=== PATIENT | female | born 1930 | race Caucasian/White ===

== ENCOUNTER 2018-02-02 18:56 | Inpatient (IN) ==
[2018-02-02] MEDS ORDERED: Lidocaine PF 1% Inj 30 ML Vial INFILTRATN ONE (20:51)
--- NOTE | 2018-02-02 20:51 | XR ---
EXAM DATE: 02/02/2018 8:47 PM EST AGE/SEX: 87 years / Female INDICATIONS: Evaluate for free air. Post op lap jimi two days ago, 01/31/18. CLINICAL DATA: This is the patient's initial encounter. Patient reports that signs and symptoms have been present for 1 day and indicates a pain score of 7/10. MEDICAL/SURGICAL HISTORY: None. None. COMPARISON: No prior exams available for comparison. FINDINGS: There is air beneath the right diaphragm as would be expected post recent surgery. Surgical clips are present in the right upper quadrant. Visualized bowel is nondilated. CONCLUSION: Mild pneumoperitoneum Electronically signed by: Vasu Ponce MD Board Certified Radiologist 02/02/2018 8:49 PM EST
[2018-02-02 21:37] LABS: Activated Partial Thrombo Time 46.7 sec (23.4-31.7); INR 2.1 Ratio; Prothrombin Time 20.9 sec (9.8-11.6)
[2018-02-02 21:49] LABS: Baso # (Auto) 0.8 th/mm3 (0.0-0.2); Baso % (Auto) 3.4 % (0.0-2.0); Eos % (Auto) 0.1 % (0.0-4.0); Hematocrit 31.6 % (35.0-46.0); Hemoglobin 10.7 gm/dL (11.6-15.3); Lymph # (Auto) 1.8 th/mm3 (1.0-4.8); Lymph % (Auto) 7.7 % (9.0-44.0); Mean Corpuscular HGB Conc 33.8 % (32.0-36.0); Mean Corpuscular Hemoglobin 32.7 pg (27.0-34.0); Mean Corpuscular Volume 96.7 fL (80.0-100.0); Mean Platelet Volume 10.3 fL (7.0-11.0); Mono # (Auto) 1.9 th/mm3 (0.0-0.9); Mono % (Auto) 8.1 % (0.0-8.0); Neut # (Auto) 19.1 th/mm3 (1.8-7.7); Neut % (Auto) 80.7 % (16.0-70.0); Platelet Count 254 th/mm3 (150-450); Red Blood Count 3.27 mil/mm3 (4.00-5.30); White Blood Count 23.6 th/mm3 (4.0-11.0)
--- NOTE | 2018-02-02 22:51 | XR ---
EXAM DATE: 02/02/2018 10:47 PM EST AGE/SEX: 87 years / Female INDICATIONS: Productive cough and shortness of breath. CLINICAL DATA: This is the patient's initial encounter. Patient reports that signs and symptoms have been present for 1 day and indicates a pain score of 0/10. MEDICAL/SURGICAL HISTORY: None. Cholecystectomy. COMPARISON: No prior exams available for comparison. FINDINGS: Slight diffuse nodular interstitial prominence. Mild focal infiltrate in the right lung base. No evid ence of effusion. Cardiac contours are satisfactory accounting for slight rotation. Sternotomy wires present. CONCLUSION: Mild right base infiltrate Electronically signed by: Vasu Ponce MD Board Certified Radiologist 02/02/2018 10:50 PM EST
[2018-02-02] MEDS ORDERED: Sodium Chlor 0.9% Inj 500 ML IV.SIG SCH (23:00)
[2018-02-02] MEDS ORDERED: Aztreonam Inj 2 GM in Sodium Chloride 0.9% Inj 100 ML IV.SIG ONE (23:06)
[2018-02-02 23:37] LABS: Calcium 8.7 mg/dL (8.5-10.1)
[2018-02-02 23:38] LABS: Carbon Dioxide 26.3 meq/L (21.0-32.0)
[2018-02-02 23:39] LABS: Albumin 2.9 g/dL (3.4-5.0)
[2018-02-02 23:44] LABS: Total Protein 7.2 g/dL (6.4-8.2)
[2018-02-02 23:53] LABS: Potassium 4.3 meq/L (3.5-5.1)
--- NOTE | 2018-02-03 00:04 | ED ---
HPI General Chief complaint: Skin/Abscess/Foreign Body Stated complaint: surgical site discharge Time Seen by Provider: 02/02/18 20:09 Source: patient and family Mode of arrival: ambulatory Limitations: no limitations History of Present Illness HPI narrative: 87-year-old female presents to the emergency department in the care of family for evaluation of bleeding from postsurgical site. Patient underwent elective cholecystectomy by laparoscopic procedure by Dr. Sims her surgeon 01/31/18. Patient had recently been identified to have symptomatic cholelithiasis. 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 Patient is prescribed Coumadin therapy. Patient had Coumadin held 4 days prior to surgery. Patient was placed on Lovenox as she was bridged back to Coumadin therapy. Patient takes Coumadin 5 days a week 4 mg and 2 days a week 2 mg. Patient is under the care of cork insulator helper Dr. Cummings who wanted patient to remain anticoagulated. Patient is also been receiving Lovenox 1 mg/ kg weight-based subcutaneously twice daily. Patient's last dose of Lovenox was this afternoon. Patient was noted this morning by family to have bleeding from incision site right abdominal wall since 4 AM. Patient also has tenderness to right upper quadrant right abdominal wall since 4 AM. Patient receiving Tylenol and Toradol for pain management no narcotic medications administered. Patient's family noted temperature elevation of 100 F but denies fever or chills. Patient has had mild cough and recently completed a course of azithromycin prescribed approximately 2 weeks ago for diagnosis of bronchitis chest x-ray was not done at that time unknown if patient had pneumonia. Patient has not had hemoptysis chest pain or shortness of breath and denies pleuritic pain. Patient has noted pain to the right upper quadrant and right abdomen abdominal wall at site of bleeding from incision site that has caused her to have some discomfort with deep inspiratory effort. Patient had no lower extremity pain or swelling. Patient had bruising to the anterior abdominal wall and noted at incision sites. Patient's had no dysuria frequency or urgency. After azithromycin had bout of diarrhea a C. difficile PCR was negative this is confirmed by family who daughter is a nurse and diarrhea has resolved. Patient did receive vancomycin and Flagyl prior to surgery. Patient was not discharged home on antibiotic. Patient family did contact the surgeon' s office who finally contacted her and encouraged her to come to the emergency room for ongoing bleeding. complaint: Reports lesion Onset (ago): hour(s) Tetanus Immunization: <5 Years Location: Reports abdomen (RUQ abdominal wall) Severity: moderate Severity scale (1-10): 4 Quality: Reports other (bleeding at laproscopic incision sitre RUQ) Pain Consistency: colicky Relieving factors: none (no resolution with direct pressure) Exacerbating factors: palpation (tenderness RUQ; on coumadin and bridging lovenox --last dose today) Context: Reports other (recent cholecystectomy) Associated symptoms: Reports nausea and cough (rare--recetn cousre of antibiotic 3 weeks ago for bronchitis also recent negative c.diff pcr for diarrhea ); Denies fever (max oral temp 100F but receivingf toradol and tylenol for post operative pain management), chills, rigors, itching, vomiting, malaise , arthralgias, myalgias and shortness of breath Treatments prior to arrival: Reports bandages Related Data Home Medications Medication Instructions Recorded Confirmed acetaminophen [Tylenol] 325 mg PO QID PRN 01/31/18 02/02/18 atorvastatin 40 mg PO DAILY 01/31/18 02/02/18 cholecalciferol (vitamin D3) 1 tab PO DAILY 01/31/18 02/02/18 [Vitamin D3] econazole 1 applic TOPICAL DAILY 01/31/18 02/02/18 furosemide 20 mg PO DAILY PRN 01/31/18 02/02/18 furosemide 40 mg PO DAILY 01/31/18 02/02/18 levothyroxine 88 mcg PO DAILY 01/31/18 02/02/18 losartan 50 mg PO DAILY 01/31/18 02/02/18 mecobalamin (vitamin B12) 1 tab PO DAILY 01/31/18 02/02/18 multivitamin [Daily Multi-Vitamin] 1 tab PO QAM 01/31/18 02/02/18 omeprazole 40 mg PO DAILY 01/31/18 02/02/18 potassium chloride 10 meq PO DAILY 01/31/18 02/02/18 warfarin [Coumadin] 2 mg PO DAILY 01/31/18 02/02/18 warfarin [Coumadin] 4 mg PO DAILY 01/31/18 02/02/18 Allergies Allergy/AdvReac Type Severity Reaction Status Date / Time cephalexin Allergy Severe HEACACHE Verified 01/31/18 08:57 DEPLEATS NORMAL TYLER AND POSSIBLE RASH sulfamethoxazole Allergy Severe Rash, Verified 01/31/18 08:57 Generalized trimethoprim Allergy Severe Rash Verified 01/31/18 08:57 Review of Systems ROS: all other systems reviewed are negative [facility] Medical History Medical History Atrial fibrillation (Acute) CHF (congestive heart failure) (Acute) CVA (cerebral vascular accident) (Acute) Dementia (Acute) High cholesterol (Acute) Hypertension (Acute) Hypothyroid (Acute) TIA (transient ischemic attack) (Acute) Surgical History Surgical History S/P CABG x 4 (Acute) Social History Social History Substance History: No History of Abuse Second Hand Smoke Exposure: No Smoking Status: Never smoker How Often Do You Have a Drink Containing Alcohol: Never Recent Travel in [facility] [place] within the Last 8 Weeks: No Recent Out of Country Travel within the Last 8 Weeks: No Immunization History Tetanus Immunization: <5 Years Exam Narrative Exam Narrative: GENERAL: Well-nourished, well-developed patient. SKIN: Focused skin assessment warm/dry. HEAD: Normocephalic. EYES: No scleral icterus. No injection or drainage. NECK: Supple, trachea midline. No JVD or lymphadenopathy. CARDIOVASCULAR: Regular rate and rhythm without murmurs, gallops, or rubs. RESPIRATORY: Breath sounds equal bilaterally. No accessory muscle use. GASTROINTESTINAL: Abdomen soft, non-tender, nondistended. Attention right upper quadrant active oozing from the incision site noted from underneath the wound adhesive Dermabond applied at time of wound closure at time of cholecystectomy mild ecchymosis no induration no redness no fluctuance mild tenderness to direct palpation remainder of abdomen ecchymotic with well- healing postoperative changes at incision sites for laparoscopic cholecystectomy. No guarding no rebound. MUSCULOSKELETAL: No cyanosis, or edema. BACK: Nontender without obvious deformity. No CVA tenderness. Procedures Laceration Laceration 1: Site: other (post op incision site with active bleeding ) Side (If applicable): right Size (cm): 0.25 Description: linear Depth: simple, single layer Anesthetic used: lidocaine 1% Amount (mL): 2 Pre-repair:: wound explored and irrigated extensively Skin layer closed with: ethilon Size (cm): 4-0 Technique:: simple, interrupted (site with re-bleeding additional suture inserted with gelgoam and good hemostasis obtained) Course Initial Documented Vital Signs Temperature 98.4 F 02/02/18 19:03 Pulse Rate 95 H 02/02/18 19:03 Respiratory Rate 18 02/02/18 19:03 Blood Pressure 143/64 H 02/02/18 19:03 Pulse Oximetry 95 02/02/18 19:03 Last Documented Vital Signs Temperature 98.5 F 02/02/18 22:40 Pulse Rate 101 H 02/02/18 22:40 Respiratory Rate 20 02/02/18 22:40 Blood Pressure 145/57 H 02/02/18 22:40 Pulse Oximetry 96 02/02/18 22:40 Medical Decision Making MDM Narrative Medical decision making narrative: Patient placed on monitor IV access obtained INR APTT and CBC ordered Wound site observed and continues to have active oozing therefore discussed case with patient's surgeon Dr. Sims who recommends [id number] suture however wound edges are such that wound adhesive/Dermabond interferes with depth of wound therefore after cleaning the site well with Betadine and sterile prep and drape 1% lidocaine was injected with good local anesthetic accomplished and 4-0 nylon sutures placed with good hemostasis and dressing applied. Review of labs INR is 2.1 APTT prolonged at 47 however hemoglobin is stable at 10.7 but white count is 23,600 with left shift therefore additional labs were ordered chest x-ray along with upright abdomen lactic acid and blood cultures along with urine which was a catheterized specimen Patient's case discussed with patient surgeon Dr. Sims who recommends proceeding with CT abdomen and pelvis although his suspicion is low for surgical related infection. Chest x-ray is remarkable for right basal infiltrate which may reflect previous bronchitis/pneumonia resolving or may be a new finding. Urinalysis shows some white blood cells but no bacteria cultures indicated. Lactic acid not elevated at 0.8. Patient treated with presumptive IV antibiotic Discussed with DR Sims Discussed with Dr Ron Childs; Dr. Childs will admit patient for Dr. Sims with consult to Dr. Sims. Family is aware of plan patient given evening dose of warfarin 2 mg by mouth. Patient will be continued on Azactam and vancomycin. Medical Screen Exam Complete: Yes Emergency Medical Condition: Yes Differential Diagnosis Differential Diagnosis: Coagulopathy, anemia, postoperative wound bleeding, dehiscence, seroma, postoperative abscess, pneumoperitoneum, sepsis, pneumonia, UTI Medical Records Medical records reviewed: Yes I reviewed the patient's medical records. Lab Data Lab results reviewed: Yes I reviewed the patient's lab results. Result diagrams: 02/02/18 21:00 02/02/18 23:10 Lab Results 02/02/18 02/02/18 02/02/18 Range/Units 21:00 21:00 21:00 CBC w Diff Slide review pending WBC 23.6 H (4.0-11.0) th/mm3 RBC 3.27 L (4.00-5.30) mil/mm3 Hgb 10.7 L (11.6-15.3) gm/dL Hct 31.6 L (35.0-46.0) % MCV 96.7 (80.0-100.0) fL MCH 32.7 (27.0-34.0) pg MCHC 33.8 (32.0-36.0) % RDW 13.0 (11.6-17.2) % Plt Count 254 (150-450) th/mm3 MPV 10.3 (7.0-11.0) fL Neut % (Auto) 80.7 H (16.0-70.0) % Lymph % (Auto) 7.7 L (9.0-44.0) % Mitchell % (Auto) 8.1 H (0.0-8.0) % Eos % (Auto) 0.1 (0.0-4.0) % Baso % (Auto) 3.4 H (0.0-2.0) % Neut # (Auto) 19.1 H (1.8-7.7) th/mm3 Lymph # (Auto) 1.8 (1.0-4.8) th/mm3 Mitchell # (Auto) 1.9 H (0.0-0.9) th/mm3 Eos # (Auto) 0.0 (0.0-0.4) th/mm3 Baso # (Auto) 0.8 H (0.0-0.2) th/mm3 WBC Differential . Diff Scan Auto diff confirmed Differential Comment . PT 20.9 H (9.8-11.6) sec INR 2.1 Ratio APTT 46.7 H Cancelled (23.4-31.7) sec Sodium (136-145) meq/L Potassium (3.5-5.1) meq/L Chloride (98-107) meq/L Carbon Dioxide (21.0-32.0) meq/L Anion Gap (5-15) meq/L BUN (7-18) mg/dL Creatinine (0.50-1.00) mg/dL Estimated GFR (>89) mL/min Random Glucose (74-106) mg/dL Lactic Acid (0.4-2.0) mmol/L Calcium (8.5-10.1) mg/dL Total Bilirubin (0.2-1.0) mg/dL Direct Bilirubin (0.0-0.2) mg/dL Indirect Bilirubin (0.0-0.8) mg/dL AST (15-37) U/L ALT (10-53) U/L Alkaline Phosphatase (45-117) U/L Total Protein (6.4-8.2) g/dL Albumin (3.4-5.0) g/dL Urine Color (Yellw/Straw) Urine Clarity (Clear) Urine pH (5.0-8.5) Ur Specific [place] (1.002-1.035) Urine Protein (Neg-Trace) mg/dL Urine Glucose (UA) (Negative) mg/dL Urine Ketones (Negative) mg/dL Urine Occult Blood (Negative) Urine Nitrate (Negative) Urine Bilirubin (Negative) Urine Urobilinogen (Less than 2) mg/dL Ur Leukocyte Esterase (Negative) Urine RBC (0-3) /hpf Urine WBC (0-5) /hpf Urine WBC Clumps (None) Ur Squamous Epith Cells (0-5) /hpf Micro UA Comment Ur Microscopic Review Urine Culture Comments 02/02/18 02/02/18 02/02/18 Range/Units 23:05 23:05 23:10 CBC w Diff WBC (4.0-11.0) th/mm3 RBC (4.00-5.30) mil/mm3 Hgb (11.6-15.3) gm/dL Hct (35.0-46.0) % MCV (80.0-100.0) fL MCH (27.0-34.0) pg MCHC (32.0-36.0) % RDW (11.6-17.2) % Plt Count (150-450) th/mm3 MPV (7.0-11.0) fL Neut % (Auto) (16.0-70.0) % Lymph % (Auto) (9.0-44.0) % Mitchell % (Auto) (0.0-8.0) % Eos % (Auto) (0.0-4.0) % Baso % (Auto) (0.0-2.0) % Neut # (Auto) (1.8-7.7) th/mm3 Lymph # (Auto) (1.0-4.8) th/mm3 Mitchell # (Auto) (0.0-0.9) th/mm3 Eos # (Auto) (0.0-0.4) th/mm3 Baso # (Auto) (0.0-0.2) th/mm3 WBC Differential Diff Scan Differential Comment PT (9.8-11.6) sec INR Ratio APTT (23.4-31.7) sec Sodium 127 L (136-145) meq/L Potassium 4.3 (3.5-5.1) meq/L Chloride 91 L (98-107) meq/L Carbon Dioxide 26.3 (21.0-32.0) meq/L Anion Gap 10 (5-15) meq/L BUN 18 (7-18) mg/dL Creatinine 0.90 (0.50-1.00) mg/dL Estimated GFR 59 L (>89) mL/min Random Glucose 76 (74-106) mg/dL Lactic Acid 0.8 (0.4-2.0) mmol/L Calcium 8.7 (8.5-10.1) mg/dL Total Bilirubin 1.1 H (0.2-1.0) mg/dL Direct Bilirubin 0.2 (0.0-0.2) mg/dL Indirect Bilirubin 0.9 H (0.0-0.8) mg/dL AST 60 H (15-37) U/L ALT 67 H (10-53) U/L Alkaline Phosphatase 70 (45-117) U/L Total Protein 7.2 (6.4-8.2) g/dL Albumin 2.9 L (3.4-5.0) g/dL Urine Color (Yellw/Straw) Urine Clarity (Clear) Urine pH (5.0-8.5) Ur Specific [place] (1.002-1.035) Urine Protein (Neg-Trace) mg/dL Urine Glucose (UA) (Negative) mg/dL Urine Ketones (Negative) mg/dL Urine Occult Blood (Negative) Urine Nitrate (Negative) Urine Bilirubin (Negative) Urine Urobilinogen (Less than 2) mg/dL Ur Leukocyte Esterase (Negative) Urine RBC (0-3) /hpf Urine WBC (0-5) /hpf Urine WBC Clumps (None) Ur Squamous Epith Cells (0-5) /hpf Micro UA Comment Ur Microscopic Review Urine Culture Comments 02/03/18 Range/Units 00:03 CBC w Diff WBC (4.0-11.0) th/mm3 RBC (4.00-5.30) mil/mm3 Hgb (11.6-15.3) gm/dL Hct (35.0-46.0) % MCV (80.0-100.0) fL MCH (27.0-34.0) pg MCHC (32.0-36.0) % RDW (11.6-17.2) % Plt Count (150-450) th/mm3 MPV (7.0-11.0) fL Neut % (Auto) (16.0-70.0) % Lymph % (Auto) (9.0-44.0) % Mitchell % (Auto) (0.0-8.0) % Eos % (Auto) (0.0-4.0) % Baso % (Auto) (0.0-2.0) % Neut # (Auto) (1.8-7.7) th/mm3 Lymph # (Auto) (1.0-4.8) th/mm3 Mitchell # (Auto) (0.0-0.9) th/mm3 Eos # (Auto) (0.0-0.4) th/mm3 Baso # (Auto) (0.0-0.2) th/mm3 WBC Differential Diff Scan Differential Comment PT (9.8-11.6) sec INR Ratio APTT (23.4-31.7) sec Sodium (136-145) meq/L Potassium (3.5-5.1) meq/L Chloride (98-107) meq/L Carbon Dioxide (21.0-32.0) meq/L Anion Gap (5-15) meq/L BUN (7-18) mg/dL Creatinine (0.50-1.00) mg/dL Estimated GFR (>89) mL/min Random Glucose (74-106) mg/dL Lactic Acid (0.4-2.0) mmol/L Calcium (8.5-10.1) mg/dL Total Bilirubin (0.2-1.0) mg/dL Direct Bilirubin (0.0-0.2) mg/dL Indirect Bilirubin (0.0-0.8) mg/dL AST (15-37) U/L ALT (10-53) U/L Alkaline Phosphatase (45-117) U/L Total Protein (6.4-8.2) g/dL Albumin (3.4-5.0) g/dL Urine Color Yellow (Yellw/Straw) Urine Clarity Clear (Clear) Urine pH 5.5 (5.0-8.5) Ur Specific [place] Less/equal 1.005 (1.002-1.035) Urine Protein Negative (Neg-Trace) mg/dL Urine Glucose (UA) Negative (Negative) mg/dL Urine Ketones Negative (Negative) mg/dL Urine Occult Blood Moderate H (Negative) Urine Nitrate Negative (Negative) Urine Bilirubin Negative (Negative) Urine Urobilinogen 0.2 (Less than 2) mg/dL Ur Leukocyte Esterase Trace H (Negative) Urine RBC 0-3 (0-3) /hpf Urine WBC 6-8 H (0-5) /hpf Urine WBC Clumps Few H (None) Ur Squamous Epith Cells 0-5 (0-5) /hpf Micro UA Comment Cath-culture ind Ur Microscopic Review Microscopic reviewed Urine Culture Comments Cath-cult indicated Imaging Data Radiologist's impression: Abdomen X-Ray 02/02/18 20:09 CONCLUSION: Mild pneumoperitoneum Chest X-Ray 02/02/18 22:35 CONCLUSION: Mild right base infiltrate Abdomen/Pelvis CT 02/03/18 00:26 CONCLUSION: 1. Fluid in the gallbladder fossa with tiny locules of air including some areas of inflammation the anterior abdominal wall suggesting recent abdominal surgery suspected cholecystectomy. The anterior abdominal wall show some induration presumably cellulitis without evidence of drainable fluid collection or abscess. There are other small areas of increased density of the abdominal wall likely related to recent injections. Discharge Plan Discharge Disposition Patient Disposition: ED Admit(ED Internal Use Only) Discharge Condition Condition: Stable Discharge Order Discharge Orders: ED Use Only Admit Order (Routine); Ordered 02/03/18 Ordered By: Carol Samuels Discharge Details Diagnosis: Cellulitis of right abdominal wall, Hx laparoscopic cholecystectomy, Coagulopathy, Leukocytosis, SIRS (systemic inflammatory response syndrome) Physicians Team ED Provider: Carol Samuels Primary Care Provider: Sina Noguera Attending Provider: Miguelangel Childs Status ED Status: Admitted Observation Patient
[2018-02-03] MEDS ORDERED: Gelatin 12 MM/7 MM Topical Foam TOPICAL ONE (00:33)
[2018-02-03 00:35] LABS: Bilirubin,Urine Negative (Negative); Clarity,Urine Clear (Clear); Color,Urine Yellow (Yellw/Straw); Glucose,Urine (UA) Negative (Negative); Leukocyte Esterase,Urine Trace (Negative); Nitrite,Urine Negative (Negative); PH,Urine 5.5 (5.0-8.5); Specific Gravity,Urine Less/Equal 1.005 (1.002-1.035); Urobilinogen,Urine 0.2 mg/dL (Less than 2)
--- NOTE | 2018-02-03 00:39 | CT ---
EXAM DATE: 02/03/2018 12:28 AM EST AGE/SEX: 87 years / Female INDICATIONS: Abscess at surgical site. CLINICAL DATA: This is the patient's initial encounter. Patient reports that signs and symptoms have been present for 1 day and indicates a pain score of 3/10. MEDICAL/SURGICAL HISTORY: . Atrial fibrillation. Congestive heart failure. Cerebral vascular ac cident. Dementia. High cholesterol. Hypertension. Hypothyroid. Transient ischemic attack. . CABG fou r times. ORAL CONTRAST: No oral contrast ingested. RADIATION DOSE: 11.28 CTDI (mGy) COMPARISON: No prior exams available for comparison. TECHNIQUE: Multiple contiguous axial images were obtained through the abdomen and pelvis following b olus infusion of 84 ml Omnipaque 350 (iohexol) nonionic water-soluble contrast as a single exam dos e. No oral contrast ingested. Using automated exposure control and adjustment of the mA and/or kV ac cording to patient size, radiation dose was kept as low as reasonably achievable to obtain optimal di agnostic quality images. DICOM format image data is available electronically for review and comparis on. FINDINGS: Lower Lungs: The visualized lower lungs are clear. Liver: The liver has a homogeneous density without space-occupying lesion. There is no dilation of th e biliary tree. There is some fluid in the gallbladder fossa with 2 surgical clips with a few tiny lo cules of air, I suspect the patient has had a recent cholecystectomy. Spleen: Homogeneous density without enlargement. Pancreas: Unremarkable without mass or calcification. Kidneys: Normal in size and shape. No evidence of mass or hydronephrosis. Adrenal Glands: Unremarkable. Aorta: Marked atherosclerotic disease. The aorta and proximal iliac vessels are grossly unremarkable without aneurysmal dilation. Bowel/Mesentery: The bowel loops are grossly unremarkable. The cecum and sigmoid colon have a normal configuration. Abdominal Wall: Superiorly in the midline there is a 5.5 cm area of indurated fat with skin thickeni ng presumably cellulitis. There are a few small locules of air within the presumed cellulitis without drainable fluid collection. Tiny locules of air extending down the anterior abdominal wall along the superficial rectus muscles likely related to recent surgery. Retroperitoneum: No evidence of adenopathy in the retrocrural, para-aortic, or deep pelvic regions. Bladder: Contours are smooth. Reproductive Organs: No abnormal masses or calcifications seen. Inguinal: The inguinal region is unremarkable without evidence of adenopathy. Bony Structures: Unremarkable. CONCLUSION: 1. Fluid in the gallbladder fossa with tiny locules of air including some areas of inflammation the anterior abdominal wall suggesting recent abdominal surgery suspected cholecystectomy. The anterior a bdominal wall show some induration presumably cellulitis without evidence of drainable fluid collecti on or abscess. There are other small areas of increased density of the abdominal wall likely related to recent injections. Electronically signed by: Craig Roque MD Board Certified Radiologist 02/03/2018 12:37 AM EST
[2018-02-03 00:48] LABS: RBC,Urine 0-3 /hpf (0-3); Squamous Epithelial Cell,Urine 0-5 /hpf (0-5)
[2018-02-03] MEDS ORDERED: Vancomycin Inj 1,000 MG in Sodium Chlor 0.9% Inj 250 ML IV.SIG ONE (00:51)
[2018-02-03] MEDS ORDERED: Ketorolac Inj 30 MG/ML (IVP) Vial IV.PUSH ONE (02:44)
[2018-02-03] MEDS ORDERED: Acetaminophen 325 MG Tablet PO ONE (02:47)
[2018-02-03] MEDS: Sod Chloride 0.9% Inj 1,000 ML IV.CONT SCH ×2 (03:54→17:00)
[2018-02-03] MEDS ORDERED: Vancomycin Consult Pharmacy OTHER PRN (06:08)
[2018-02-03] MEDS ORDERED: ACETAMINOPHEN 325 MG PO PRN (06:42)
[2018-02-03] MEDS ORDERED: ACETAMINOPHEN 650 MG PO PRN (06:46)
--- NOTE | 2018-02-03 07:32 | P.HP ---
History of Present Illness Service: [facility] hospitalist service Primary Care Physician: Sina Noguera MD History of Present Illness: HPI: 87-year-old white female who had a laparoscopic cholecystectomy on 01-31-18 who came to the emergency room on the evening of 02-02-18 because of persistent oozing of blood from 1 of the incision sites of her surgery. It has been oozing blood for about 24 hours and they were unable to stop the bleeding. She was on Lovenox as bridge therapy for warfarin because she has atrial fibrillation. Her warfarin was reinstituted the evening of her surgery and she had an INR done on 02-02-18 that was just slightly above 2.0 and her Lovenox was stopped. In the ER the physician had to apparently place a few sutures in the site where the incision was draining and apply some pressure to eventually get the bleeding to stop. She was mildly tender in the right upper abdomen. Blood work that was done in the ED showed an elevated white blood cell count of 23,000 and a sodium level of 127. An initial chest x-ray showed questionable infiltrate in right lung base. A CT scan of the abdomen however showed no infiltrate in the lower lung but did show induration in the right upper abdomen suggestive of possible cellulitis but no abscess was seen. She reportedly did have a low-grade fever yesterday morning. She did have one episode of vomiting on Tuesday evening (02-01-18). She denies any dysuria, frequency of urination or hematuria. She has no diarrhea. She was treated for a bronchial type infection on 01-20-[address] Noguera (PCP) and given a Z-Edwardo at that time and her cough resolved to her surgery. This morning after she woke she did cough to clear her throat and there was some slight blood tinged white mucus. A chest x-ray was not done earlier in the month when she was put on the Z-edwardo. Dr. Samuels (ER physician) talked with the patient's surgeon (Dr. Sims) last night in the emergency room and he recommended admitting the patient to the medical service and he would see her in consultation. She was given vancomycin and Azactam in the ED last evening. She denies any chest pain or wheezing. Medical history: Chronic atrial fibrillation Hypertension Hyperlipidemia Hypothyroidism Gastroesophageal reflux disease Mild to moderate aortic valve stenosis on prior 2D echo on 12-08-17. Her EF was 55%. Atherosclerosis of the aorta/tortuous aorta Osteopenia Stage II CKD History of prior CVA and TIA CHF Coronary artery disease with prior four-vessel coronary artery bypass graft. She had a myocardial perfusion scan on 12-07-17 showed mild inferolateral pattern without significant ischemia and an EF of 60%. No colon disease No liver disease No diabetes mellitus No cancer History of herpes zoster Surgical history: Tonsillectomy Bilateral cataract extraction and lens implant Bilateral upper lid surgery for ptosis Four-vessel coronary artery bypass Laparoscopic cholecystectomy on 01-31-18 Allergies: Cephalexin Bactrim (sulfa drugs) Medications: Warfarin 4 mg 1 tablet daily except half a tablet on Tuesday and Tuesday Omeprazole 20 mg tablet 2 tablets daily Losartan 50 mg 1 daily Atorvastatin 40 mg daily Furosemide 40 mg daily and an additional 20 mg as needed Potassium chloride 10 mEq 1 daily Vitamin D 3 2000 units daily Multivitamin 1 daily Vitamin B12 thousand micrograms daily Family history: Mother at 95 Father at 46 of heart disease Son has had coronary artery disease and coronary artery bypass Social history: She only smoked a pack a day for 10 years many years ago. She denies alcohol use. She is and lives independently alone. 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 - Diagnosis (1) Cellulitis of right abdominal wall (2) Leukocytosis (3) SIRS (systemic inflammatory response syndrome) (4) Hyponatremia (5) Hypertension (6) Hyperlipidemia (7) Coronary artery disease (8) Chronic atrial fibrillation (9) CHF (congestive heart failure) (10) S/P CABG x 4 (11) Osteopenia (12) GERD (gastroesophageal reflux disease) (13) Aortic valve stenosis (14) Atherosclerosis of aorta (15) Hemoptysis (16) Hx laparoscopic cholecystectomy Review of Systems Review of systems: General: No chills or sweats. Low grade temperature yesterday. HEENT: No sore throat, runny nose, earache. Cardiovascular: No chest pain, heart palpitations, shortness of breath, orthopnea. Pulmonary: No shortness of breath, no pleuritic chest pain Gastrointestinal: No heartburn, indigestion, diarrhea, constipation, melena, rectal bleeding. She has mild pain in the right upper abdomen post-op. She had one episode of vomiting over 24 hours ago. : No dysuria, hematuria, urgency, frequency. She gets occasional leakage of her urine.. Musculoskeletal: Negative Psychiatry: No significant anxiety or depression Extremities: No edema Dermatology: No rash or itching Neuro: No headache, confusion, motor weakness, numbness or tingling PMFSH - History History Provided By: Patient, Family Member - Medical History Medical History: Medical History (Last Reviewed 02/03/18 @ 00:02 by Carol Samuels MD) Atrial fibrillation CHF (congestive heart failure) CVA (cerebral vascular accident) Dementia High cholesterol Hypertension Hypothyroid TIA (transient ischemic attack) - Surgical History Surgical History: Surgical History (Last Updated 02/03/18 @ 07:22 by Miguelangel Childs MD) History of laparoscopic cholecystectomy History of ptosis repair Hx of tonsillectomy Status post cataract extraction of both eyes with insertion of intraocular lens S/P CABG x 4 - Tobacco History Second Hand Smoke Exposure: No Smoking Status: Never smoker - Alcohol History How Often Do You Have a Drink Containing Alcohol: Never - Substance Use History Substance History: No History of Abuse - Travel History Recent Travel in the [place] Within the Last 8 Weeks: No Recent Travel Out of the Country Within the Last 8 Weeks: No - Immunization History Tetanus Immunization: <5 Years Medications and Allergies Active Medications: Active Medications Atorvastatin Calcium (Lipitor) 40 mg PO DAILY [facility] Econazole Nitrate (Spectazole 1% Cream) 1 applicatio TOPICAL DAILY [facility] Aztreonam 1,000 mg/ Sodium (Chloride) 100 mls @ 200 mls/hr IV.SIG Q8H [facility] Last Infusion: 02/03/18 03:55 Dose: Infused Sodium Chloride (Ns Inj) 1,000 mls @ 75 mls/hr IV.CONT .[id number] [facility] Last Admin: 02/03/18 03:54 Dose: 75 mls/hr Aztreonam 2 gm/ Sodium (Chloride) 100 mls @ 200 mls/hr IV.SIG Q8H [facility] Vancomycin HCl 750 mg/ Sodium (Chloride) 257.5 mls @ 250 mls/hr IV.SIG Q24H [facility] Losartan Potassium (Cozaar) 50 mg PO DAILY [facility] Miscellaneous Information ([facility] Ordered Lab Info) 0 each OTHER ONCE@ [id number] [facility] Stop: 02/06/18 04:45 Non-Formulary Medication (Cholecalciferol (Vitamin D3) [Vitamin D3]) 1 tab PO DAILY [facility] Non-Formulary Medication (Levothyroxine [Levothyroxine]) 88 mcg PO DAILY [facility] Non-Formulary Medication (Mecobalamin (Vitamin B12) [Mecobalamin (Vitamin B12)] ) 1 tab PO DAILY [facility] Non-Formulary Medication (Multivitamin [Daily Multi-Vitamin]) 1 tab PO QAM [facility] Non-Formulary Medication (Acetaminophen [Tylenol]) 650 mg PO QID PRN PRN Reason: Pain Pharmacy Profile Note (Vancomycin Consult Pharmacy) 1 each OTHER UNSCH PRN PRN Reason: Pharmacy to dose Allergies Allergy/AdvReac Type Severity Reaction Status Date / Time cephalexin Allergy Severe HEACACHE Verified 01/31/18 08:57 DEPLEATS NORMAL TYLER AND POSSIBLE RASH sulfamethoxazole Allergy Severe Rash, Verified 01/31/18 08:57 Generalized trimethoprim Allergy Severe Rash Verified 01/31/18 08:57 Home Medications Medication Instructions Recorded Confirmed Type acetaminophen [Tylenol] 325 mg PO QID PRN 01/31/18 02/02/18 History atorvastatin 40 mg PO DAILY 01/31/18 02/02/18 History cholecalciferol (vitamin D3) 1 tab PO DAILY 01/31/18 02/02/18 History [Vitamin D3] econazole 1 applic TOPICAL DAILY 01/31/18 02/02/18 History furosemide 20 mg PO DAILY PRN 01/31/18 02/02/18 History furosemide 40 mg PO DAILY 01/31/18 02/02/18 History levothyroxine 88 mcg PO DAILY 01/31/18 02/02/18 History losartan 50 mg PO DAILY 01/31/18 02/02/18 History mecobalamin (vitamin B12) 1 tab PO DAILY 01/31/18 02/02/18 History multivitamin [Daily Multi-Vitamin] 1 tab PO QAM 01/31/18 02/02/18 History omeprazole 40 mg PO DAILY 01/31/18 02/02/18 History potassium chloride 10 meq PO DAILY 01/31/18 02/02/18 History warfarin [Coumadin] 2 mg PO DAILY 01/31/18 02/02/18 History warfarin [Coumadin] 4 mg PO DAILY 01/31/18 02/02/18 History Exam Vital signs: Vital Signs 02/02/18 19:03 02/02/18 22:40 02/03/18 04:00 Temperature 98.4 F 98.5 F 97.4 F L Pulse Rate 95 H 101 H 104 H Respiratory Rate 18 20 20 Blood Pressure 143/64 H 145/57 H 191/77 H Pulse Oximetry 95 96 93 L Intake & Output 02/02/18 02/02/18 02/03/18 06:59 18:59 06:59 Intake Total 950 / 950 Balance 950 / 950 Weight 67.1 kg Intake: IV 950 / 950 Azactam Inj 1,000 MG In NS Inj 100 / 100 100 ML @ 200 mls/hr IV.SIG Q8H [facility] Rx#:[id number] Azactam Inj 2 GM In NS Inj 100 100 / 100 ML @ 200 mls/hr IV.SIG ONCE ONE Rx#:[id number] NS Inj 500 ML @ 1000 mls/hr IV. 500 / 500 SIG BOLUS [facility] Rx#:[id number] Vancomycin Inj 1,000 MG In NS 250 / 250 Inj 250 ML @ 250 mls/hr IV.SIG ONCE ONE Rx#:[id number] Other: Date of Last Bowel Movement 01/29/18 Weight On Admission 67.1 kg Narrative: PE: This is a pleasant white female in no distress. HEENT: Pupils equal, EOMs intact, sclera nonicteric, mouth without lesions, TMs intact, nose without lesions Neck: No JVD, neck is supple, no carotid bruit Heart: Irregular rate and rhythm without murmurs or gallops Lungs: Clear to auscultation Abdomen: She has mild to moderate tenderness of the mid and right upper abdomen with slight rebound tenderness, no masses, no organomegaly. Small surgical sites from recent lap cholecystomy with no current oozing of blood Extremities: No edema, pulses palpated, no calf tenderness Skin: Without lesions or rash Neuro: Alert, oriented, normal motor exam, sensation intact, cranial nerves intact Results - Labs CBC & Chem 7: 02/02/18 21:00 02/02/18 23:10 Labs: Laboratory Results - last 24 hr 02/02/18 02/02/18 02/02/18 21:00 21:00 21:00 CBC w Diff Slide review pending WBC 23.6 H RBC 3.27 L Hgb 10.7 L Hct 31.6 L MCV 96.7 MCH 32.7 MCHC 33.8 RDW 13.0 Plt Count 254 MPV 10.3 Neut % (Auto) 80.7 H Lymph % (Auto) 7.7 L [place] % (Auto) 8.1 H Eos % (Auto) 0.1 Baso % (Auto) 3.4 H Neut # (Auto) 19.1 H Lymph # (Auto) 1.8 [place] # (Auto) 1.9 H Eos # (Auto) 0.0 Baso # (Auto) 0.8 H WBC Differential . Diff Scan Auto diff confirmed Differential Comment . PT 20.9 H INR 2.1 APTT 46.7 H Cancelled Sodium Potassium Chloride Carbon Dioxide Anion Gap BUN Creatinine Estimated GFR Random Glucose Lactic Acid Calcium Total Bilirubin Direct Bilirubin Indirect Bilirubin AST ALT Alkaline Phosphatase Total Protein Albumin Urine Color Urine Clarity Urine pH Ur Specific [place] Urine Protein Urine Glucose (UA) Urine Ketones Urine Occult Blood Urine Nitrate Urine Bilirubin Urine Urobilinogen Ur Leukocyte Esterase Urine RBC Urine WBC Urine WBC Clumps Ur Squamous Epith Cells Micro UA Comment Ur Microscopic Review Urine Culture Comments 02/02/18 02/02/18 02/02/18 23:05 23:05 23:10 CBC w Diff WBC RBC Hgb Hct MCV MCH MCHC RDW Plt Count MPV Neut % (Auto) Lymph % (Auto) [place] % (Auto) Eos % (Auto) Baso % (Auto) Neut # (Auto) Lymph # (Auto) [place] # (Auto) Eos # (Auto) Baso # (Auto) WBC Differential Diff Scan Differential Comment PT INR APTT Sodium 127 L Potassium 4.3 Chloride 91 L Carbon Dioxide 26.3 Anion Gap 10 BUN 18 Creatinine 0.90 Estimated GFR 59 L Random Glucose 76 Lactic Acid 0.8 Calcium 8.7 Total Bilirubin 1.1 H Direct Bilirubin 0.2 Indirect Bilirubin 0.9 H AST 60 H ALT 67 H Alkaline Phosphatase 70 Total Protein 7.2 Albumin 2.9 L Urine Color Urine Clarity Urine pH Ur Specific [place] Urine Protein Urine Glucose (UA) Urine Ketones Urine Occult Blood Urine Nitrate Urine Bilirubin Urine Urobilinogen Ur Leukocyte Esterase Urine RBC Urine WBC Urine WBC Clumps Ur Squamous Epith Cells Micro UA Comment Ur Microscopic Review Urine Culture Comments 02/03/18 00:03 CBC w Diff WBC RBC Hgb Hct MCV MCH MCHC RDW Plt Count MPV Neut % (Auto) Lymph % (Auto) [place] % (Auto) Eos % (Auto) Baso % (Auto) Neut # (Auto) Lymph # (Auto) [place] # (Auto) Eos # (Auto) Baso # (Auto) WBC Differential Diff Scan Differential Comment PT INR APTT Sodium Potassium Chloride Carbon Dioxide Anion Gap BUN Creatinine Estimated GFR Random Glucose Lactic Acid Calcium Total Bilirubin Direct Bilirubin Indirect Bilirubin AST ALT Alkaline Phosphatase Total Protein Albumin Urine Color Yellow Urine Clarity Clear Urine pH 5.5 Ur Specific [place] Less/equal 1.005 Urine Protein Negative Urine Glucose (UA) Negative Urine Ketones Negative Urine Occult Blood Moderate H Urine Nitrate Negative Urine Bilirubin Negative Urine Urobilinogen 0.2 Ur Leukocyte Esterase Trace H Urine RBC 0-3 Urine WBC 6-8 H Urine WBC Clumps Few H Ur Squamous Epith Cells 0-5 Micro UA Comment Cath-culture ind Ur Microscopic Review Microscopic reviewed Urine Culture Comments Cath-cult indicated - Imaging Impressions Abdomen X-Ray 02/02/18 20:09 CONCLUSION: Mild pneumoperitoneum Chest X-Ray 02/02/18 22:35 CONCLUSION: Mild right base infiltrate Abdomen/Pelvis CT 02/03/18 00:26 CONCLUSION: 1. Fluid in the gallbladder fossa with tiny locules of air including some areas of inflammation the anterior abdominal wall suggesting recent abdominal surgery suspected cholecystectomy. The anterior abdominal wall show some induration presumably cellulitis without evidence of drainable fluid collection or abscess. There are other small areas of increased density of the abdominal wall likely related to recent injections. Caprini VTE Risk Assessment Caprini VTE Risk Assessment: Moderate/High Risk (score >= 2) Caprini Risk Assessment Model: Point Value = 1 Point Value = 2 Point Value = 3 Point Value = 5 Age 41-60 Minor surgery BMI > 25 kg/m2 Swollen legs Varicose veins or History of unexplained or recurrent spontaneous Oral contraceptives or hormone replacement Sepsis (< 1 month) Serious lung disease, including pneumonia (< 1 month) Abnormal pulmonary function Acute myocardial infarction Congestive heart failure (< 1 month) History of inflammatory bowel disease Medical patient at bed rest Age 61-74 Arthroscopic surgery Major open surgery (> 45 min) Laparoscopic surgery (> 45 min) Malignancy Confined to bed (> 72 hours) Immobilizing plaster cast Central venous access Age >= 75 History of VTE Family history of VTE Factor V Leiden Prothrombin [id number] Lupus anticoagulant Anticardiolipin antibodies Elevated serum homocysteine Heparin-induced thrombocytopenia Other congenital or acquired thrombophilia Stroke (< 1 month) Elective arthroplasty Hip, pelvis, or leg fracture Acute spinal cord injury (< 1 month) Prophylaxis Regimen: Total Risk Factor Score Risk Level Prophylaxis Regimen 0-1 Low Early ambulation 2 Moderate Order ONE of the following: *Sequential Compression Device (SCD) *Heparin 5000 units SQ BID 3-4 Higher Order ONE of the following medications: *Heparin 5000 units SQ TID *Enoxaparin/Lovenox 40 mg SQ daily (WT < 150 kg, CrCl > 30 mL/min) *Enoxaparin/Lovenox 30 mg SQ daily (WT < 150 kg, CrCl > 10-29 mL/min) *Enoxaparin/Lovenox 30 mg SQ BID (WT < 150 kg, CrCl > 30 mL/min) AND/OR *Sequential Compression Device (SCD) 5 or more Highest Order ONE of the following medications: *Heparin 5000 units SQ TID (Preferred with Epidurals) *Enoxaparin/Lovenox 40 mg SQ daily (WT < 150 kg, CrCl > 30 mL/min) *Enoxaparin/Lovenox 30 mg SQ daily (WT < 150 kg, CrCl > 10-29 mL/min) *Enoxaparin/Lovenox 30 mg SQ BID (WT < 150 kg, CrCl > 30 mL/min) AND *Sequential Compression Device (SCD) Patient is on Warfarin. Assessment and Plan - Assessment (1) Cellulitis of right abdominal wall Code(s): L03.311 - Cellulitis of abdominal wall Status: Acute (2) Leukocytosis Code(s): D72.829 - Elevated white blood cell count, unspecified Status: Acute (3) SIRS (systemic inflammatory response syndrome) Code(s): R65.10 - Systemic inflammatory response syndrome (SIRS) of non- infectious origin without acute organ dysfunction Status: Acute (4) Hyponatremia Code(s): E87.1 - Hypo-osmolality and hyponatremia Status: Chronic (5) Hypertension Code(s): I10 - Essential (primary) hypertension Status: Chronic (6) Hyperlipidemia Code(s): E78.5 - Hyperlipidemia, unspecified Status: Chronic (7) Coronary artery disease Code(s): I25.10 - Atherosclerotic heart disease of [place] coronary artery without angina pectoris Status: Chronic (8) Chronic atrial fibrillation Code(s): I48.2 - Chronic atrial fibrillation Status: Chronic (9) CHF (congestive heart failure) Code(s): I50.9 - Heart failure, unspecified Status: Chronic (10) S/P CABG x 4 Code(s): Z95.1 - Presence of aortocoronary bypass graft Status: Chronic (11) Osteopenia Code(s): M85.80 - Other specified disorders of bone density and structure, unspecified site Status: Chronic (12) GERD (gastroesophageal reflux disease) Code(s): K21.9 - Gastro-esophageal reflux disease without esophagitis Status: Chronic (13) Aortic valve stenosis Code(s): I35.0 - Nonrheumatic aortic (valve) stenosis Status: Chronic (14) Atherosclerosis of aorta Code(s): I70.0 - Atherosclerosis of aorta Status: Acute (15) Hemoptysis Code(s): R04.2 - Hemoptysis Status: Acute (16) Hx laparoscopic cholecystectomy Code(s): Z90.49 - Acquired absence of other specified parts of digestive tract Status: Acute - Plan Plan: Patient is admitted and begun on IV vancomycin and Azactam. She will be given some IV normal saline hyponatremia. I held her Lasix for now since that was probably contributing to her hyponatremia She will be continued on warfarin for her atrial fibrillation. Her surgeon is been consulted to further evaluate her as well. She will be maintained on her regular medication other than her furosemide for now. I will recheck her CBC and CMP this morning as well as an INR. I will put her on a full liquid diet. Code Status: Full code
[2018-02-03] MEDS: Levothyroxine 88 MCG Tablet PO SCH (07:33)
[2018-02-03] MEDS: Aztreonam Inj 2 GM in Sodium Chloride 0.9% Inj 100 ML IV.SIG SCH ×2 (08:35→16:59)
[2018-02-03 08:48] LABS: Baso # (Auto) 0.1 th/mm3 (0.0-0.2); Baso % (Auto) 0.3 % (0.0-2.0); Eos # (Auto) 0.1 th/mm3 (0.0-0.4); Eos % (Auto) 0.3 % (0.0-4.0); Hemoglobin 10.3 gm/dL (11.6-15.3); Lymph % (Auto) 4.7 % (9.0-44.0); Mean Corpuscular HGB Conc 33.1 % (32.0-36.0); Mean Corpuscular Hemoglobin 31.8 pg (27.0-34.0); Mean Corpuscular Volume 96.2 fL (80.0-100.0); Mean Platelet Volume 10.3 fL (7.0-11.0); Mono # (Auto) 1.2 th/mm3 (0.0-0.9); Mono % (Auto) 5.6 % (0.0-8.0); Neut # (Auto) 19.7 th/mm3 (1.8-7.7); Neut % (Auto) 89.1 % (16.0-70.0); Platelet Count 233 th/mm3 (150-450); Red Blood Count 3.22 mil/mm3 (4.00-5.30); Red Cell Distribution Width 13.2 % (11.6-17.2); White Blood Count 22.1 th/mm3 (4.0-11.0)
[2018-02-03 08:51] LABS: Chloride 95 meq/L (98-107); Potassium 3.9 meq/L (3.5-5.1); Sodium 130 meq/L (136-145)
[2018-02-03 08:53] LABS: INR 1.7 Ratio; Prothrombin Time 17.4 sec (9.8-11.6)
[2018-02-03 08:54] LABS: Albumin 2.5 g/dL (3.4-5.0); Anion Gap 8 meq/L (5-15); Blood Urea Nitrogen 14 mg/dL (7-18); Carbon Dioxide 27.1 meq/L (21.0-32.0); Glucose,Random 102 mg/dL (74-106)
[2018-02-03 08:57] LABS: Alanine Aminotransferase 49 U/L (10-53); Aspartate Aminotransferase 28 U/L (15-37); Glomerular Filtration Rate 80 mL/min (>89)
[2018-02-03 08:59] LABS: Total Protein 6.5 g/dL (6.4-8.2)
[2018-02-03 09:00] LABS: Alkaline Phosphatase 66 U/L (45-117)
[2018-02-03] MEDS ORDERED: MECOBALAMIN PO SCH ×2 (09:00)
[2018-02-03] MEDS ORDERED: ECONAZOLE 1% TOPICAL SCH ×2 (09:00)
[2018-02-03] MEDS: Acetaminophen 325 MG Tablet PO PRN ×2 (09:14→17:05)
[2018-02-03] MEDS: metroNIDAZOLE 500 MG Tablet PO SCH ×2 (11:32→22:01)
--- NOTE | 2018-02-03 13:31 | P.CONGS ---
[facility] Gen Surgery Consult Note Consult date: 02/03/18 Narrative: Mrs. White is an 87 yo F who underwent uncomplicated laparoscopic cholecystectomy on Tuesday this week. Yesterday she developed bleeding from the right lateral port site which was unable to be stopped by direct pressure. Therefore, she presented to [facility] ED where hemostasis was achieved by suture ligation. She was bridged with lovenox during periop period due to h/o multiple CVA and atrial fibrillation. During routine evaluation in ED she was noted to have WBC of 23,000. She c/o mild-moderate abdominal pain. She was tested for c dif last week due to diarrhea which was negative. Previously to that she was given z addis for bronchitis. CT a/p was performed which basically showed post op changes. Review of Systems All other systems reviewed negative except as stated in [facility] - History History Provided By: Patient, Family Member - Medical History Medical History: Medical History (Last Reviewed 02/03/18 @ 00:02 by Carol Samuels MD) Atrial fibrillation CHF (congestive heart failure) CVA (cerebral vascular accident) Dementia High cholesterol Hypertension Hypothyroid TIA (transient ischemic attack) - Surgical History Surgical History: Surgical History (Last Updated 02/03/18 @ 07:22 by Miguelangel Childs MD) History of laparoscopic cholecystectomy History of ptosis repair Hx of tonsillectomy Status post cataract extraction of both eyes with insertion of intraocular lens S/P CABG x 4 - Tobacco History Second Hand Smoke Exposure: No Smoking Status: Never smoker - Alcohol History How Often Do You Have a Drink Containing Alcohol: Never - Substance Use History Substance History: No History of Abuse - Travel History Recent Travel in the [place] Within the Last 8 Weeks: No Recent Travel Out of the Country Within the Last 8 Weeks: No - Immunization History Tetanus Immunization: <5 Years Medications and Allergies Active Medications: Active Medications Acetaminophen (Tylenol) 650 mg PO QID PRN PRN Reason: PAIN SCALE 1-10 Last Admin: 02/03/18 09:14 Dose: 650 mg Atorvastatin Calcium (Lipitor) 40 mg PO DAILY [facility] Last Admin: 02/03/18 08:36 Dose: 40 mg Cyanocobalamin (Vitamin B12) 1,000 mcg PO DAILY [facility] Last Admin: 02/03/18 08:37 Dose: 1,000 mcg Sodium Chloride (Ns Inj) 1,000 mls @ 75 mls/hr IV.CONT .[id number] [facility] Last Admin: 02/03/18 03:54 Dose: 75 mls/hr Aztreonam 2 gm/ Sodium (Chloride) 100 mls @ 200 mls/hr IV.SIG Q8H [facility] Last Infusion: 02/03/18 09:11 Dose: Infused Vancomycin HCl 750 mg/ Sodium (Chloride) 257.5 mls @ 250 mls/hr IV.SIG Q24H [facility] Levothyroxine Sodium (Synthroid) 88 mcg PO DAILY@0600 [facility] Last Admin: 02/03/18 07:33 Dose: 88 mcg Losartan Potassium (Cozaar) 50 mg PO DAILY [facility] Last Admin: 02/03/18 08:36 Dose: 50 mg Metronidazole (Flagyl) 500 mg PO Q8H [facility] Last Admin: 02/03/18 11:32 Dose: 500 mg Miscellaneous Information ([facility] Ordered Lab Info) 0 each OTHER ONCE@ 0345 [facility] Stop: 02/06/18 04:45 Multivitamins (Theragran) 1 tab PO DAILY [facility] Last Admin: 02/03/18 08:36 Dose: 1 tab Patient Own Med- Econazole 1% Cream (Spectazole 1% Cream ) 0 each TOPICAL DAILY [facility] Pharmacy Profile Note (Vancomycin Consult Pharmacy) 1 each OTHER UNSCH PRN PRN Reason: Pharmacy to dose Vitamin D (Vitamin D3) 2,000 unit PO DAILY [facility] Last Admin: 02/03/18 08:36 Dose: 2,000 unit Warfarin Sodium (Coumadin) 4 mg PO DAILY@1600 [facility] Allergies Allergy/AdvReac Type Severity Reaction Status Date / Time cephalexin Allergy Severe HEACACHE Verified 01/31/18 08:57 DEPLEATS NORMAL TYLER AND POSSIBLE RASH sulfamethoxazole Allergy Severe Rash, Verified 01/31/18 08:57 Generalized trimethoprim Allergy Severe Rash Verified 01/31/18 08:57 Home Medications Medication Instructions Recorded Confirmed Type acetaminophen [Tylenol] 325 mg PO QID PRN 01/31/18 02/02/18 History atorvastatin 40 mg PO DAILY 01/31/18 02/02/18 History cholecalciferol (vitamin D3) 1 tab PO DAILY 01/31/18 02/02/18 History [Vitamin D3] econazole 1 applic TOPICAL DAILY 01/31/18 02/02/18 History furosemide 20 mg PO DAILY PRN 01/31/18 02/02/18 History furosemide 40 mg PO DAILY 01/31/18 02/02/18 History levothyroxine 88 mcg PO DAILY 01/31/18 02/02/18 History losartan 50 mg PO DAILY 01/31/18 02/02/18 History mecobalamin (vitamin B12) 1 tab PO DAILY 01/31/18 02/02/18 History multivitamin [Daily Multi-Vitamin] 1 tab PO QAM 01/31/18 02/02/18 History omeprazole 40 mg PO DAILY 01/31/18 02/02/18 History potassium chloride 10 meq PO DAILY 01/31/18 02/02/18 History warfarin [Coumadin] 2 mg PO DAILY 01/31/18 02/02/18 History warfarin [Coumadin] 4 mg PO DAILY 01/31/18 02/02/18 History Exam Vital signs: Vital Signs 02/02/18 19:03 02/02/18 22:40 02/03/18 03:45 Temperature 98.4 F 98.5 F 97.4 F L Pulse Rate 95 H 101 H 104 H Respiratory Rate 18 20 20 Blood Pressure 143/64 H 145/57 H 191/77 H Pulse Oximetry 95 96 93 L 02/03/18 04:00 02/03/18 05:00 02/03/18 08:00 Temperature 97.4 F L 96.9 F L Pulse Rate 104 H 106 H Respiratory Rate 20 16 Blood Pressure 191/77 H 135/63 161/83 H Pulse Oximetry 93 L 96 02/03/18 12:00 Temperature 97.2 F L Pulse Rate 100 H Respiratory Rate 16 Blood Pressure 140/67 Pulse Oximetry 95 Intake & Output 02/02/18 02/03/18 02/03/18 18:59 06:59 18:59 Intake Total 950 / 950 100 / 100 Output Total 400 / 400 Balance 550 / 550 100 / 100 Weight 66.4 kg Intake: IV 950 / 950 100 / 100 Azactam Inj 1,000 MG In NS Inj 100 / 100 100 ML @ 200 mls/hr IV.SIG Q8H [facility] Rx#:[id number] Azactam Inj 2 GM In NS Inj 100 100 / 100 100 / 100 ML @ 200 mls/hr IV.SIG Q8H [facility] Rx#:[id number] NS Inj 500 ML @ 1000 mls/hr IV. 500 / 500 SIG BOLUS [facility] Rx#:[id number] Vancomycin Inj 1,000 MG In NS 250 / 250 Inj 250 ML @ 250 mls/hr IV.SIG ONCE ONE Rx#:[id number] Output: Urine 200 / 200 Stool 200 / 200 Other: Date of Last Bowel Movement 01/29/18 Weight On Admission 67.1 kg Narrative: GENERAL: Awake and alert. No acute distress. Cooperative. HEAD: Normocephalic. Atraumatic. EYES: Pupils equal round and reactive to light bilaterally. No scleral icterus. ENT: Moist oral mucosa. NECK: Trachea midline. CHEST: Nonlabored breathing. No respiratory distress. CARDIOVASCULAR: Mild tachycardia. ABDOMEN: Soft, multiple areas of bruising, bandage in right abdomen, no active bleeding. Moderate right side ttp. EXTREMITIES: No cyanosis or edema. SKIN: Warm, dry, nonjaundiced. Results - Labs 02/03/18 07:49 02/03/18 07:49 Laboratory Results - last 24 hr 02/02/18 02/02/18 02/02/18 21:00 21:00 21:00 CBC w Diff Slide review pending WBC 23.6 H RBC 3.27 L Hgb 10.7 L Hct 31.6 L MCV 96.7 MCH 32.7 MCHC 33.8 RDW 13.0 Plt Count 254 MPV 10.3 Neut % (Auto) 80.7 H Lymph % (Auto) 7.7 L [place] % (Auto) 8.1 H Eos % (Auto) 0.1 Baso % (Auto) 3.4 H Neut # (Auto) 19.1 H Lymph # (Auto) 1.8 [place] # (Auto) 1.9 H Eos # (Auto) 0.0 Baso # (Auto) 0.8 H WBC Differential . Diff Scan Auto diff confirmed Differential Comment . PT 20.9 H INR 2.1 APTT 46.7 H Cancelled Sodium Potassium Chloride Carbon Dioxide Anion Gap BUN Creatinine Estimated GFR Random Glucose Lactic Acid Calcium Total Bilirubin Direct Bilirubin Indirect Bilirubin AST ALT Alkaline Phosphatase Total Protein Albumin Urine Color Urine Clarity Urine pH Ur Specific [place] Urine Protein Urine Glucose (UA) Urine Ketones Urine Occult Blood Urine Nitrate Urine Bilirubin Urine Urobilinogen Ur Leukocyte Esterase Urine RBC Urine WBC Urine WBC Clumps Ur Squamous Epith Cells Micro UA Comment Ur Microscopic Review Urine Culture Comments 02/02/18 02/02/18 02/02/18 23:05 23:05 23:10 CBC w Diff WBC RBC Hgb Hct MCV MCH MCHC RDW Plt Count MPV Neut % (Auto) Lymph % (Auto) [place] % (Auto) Eos % (Auto) Baso % (Auto) Neut # (Auto) Lymph # (Auto) [place] # (Auto) Eos # (Auto) Baso # (Auto) WBC Differential Diff Scan Differential Comment PT INR APTT Sodium 127 L Potassium 4.3 Chloride 91 L Carbon Dioxide 26.3 Anion Gap 10 BUN 18 Creatinine 0.90 Estimated GFR 59 L Random Glucose 76 Lactic Acid 0.8 Calcium 8.7 Total Bilirubin 1.1 H Direct Bilirubin 0.2 Indirect Bilirubin 0.9 H AST 60 H ALT 67 H Alkaline Phosphatase 70 Total Protein 7.2 Albumin 2.9 L Urine Color Urine Clarity Urine pH Ur Specific [place] Urine Protein Urine Glucose (UA) Urine Ketones Urine Occult Blood Urine Nitrate Urine Bilirubin Urine Urobilinogen Ur Leukocyte Esterase Urine RBC Urine WBC Urine WBC Clumps Ur Squamous Epith Cells Micro UA Comment Ur Microscopic Review Urine Culture Comments 02/03/18 02/03/18 02/03/18 00:03 07:49 07:49 CBC w Diff Slide review pending WBC 22.1 H RBC 3.22 L Hgb 10.3 L Hct 31.0 L MCV 96.2 MCH 31.8 MCHC 33.1 RDW 13.2 Plt Count 233 MPV 10.3 Neut % (Auto) 89.1 H Lymph % (Auto) 4.7 L [place] % (Auto) 5.6 Eos % (Auto) 0.3 Baso % (Auto) 0.3 Neut # (Auto) 19.7 H Lymph # (Auto) 1.0 [place] # (Auto) 1.2 H Eos # (Auto) 0.1 Baso # (Auto) 0.1 WBC Differential . Diff Scan Auto diff confirmed Differential Comment . PT INR APTT Sodium 130 L Potassium 3.9 Chloride 95 L Carbon Dioxide 27.1 Anion Gap 8 BUN 14 Creatinine 0.69 Estimated GFR 80 L Random Glucose 102 Lactic Acid Calcium 8.0 L Total Bilirubin 0.7 Direct Bilirubin Indirect Bilirubin AST 28 ALT 49 Alkaline Phosphatase 66 Total Protein 6.5 D Albumin 2.5 L Urine Color Yellow Urine Clarity Clear Urine pH 5.5 Ur Specific [place] Less/equal 1.005 Urine Protein Negative Urine Glucose (UA) Negative Urine Ketones Negative Urine Occult Blood Moderate H Urine Nitrate Negative Urine Bilirubin Negative Urine Urobilinogen 0.2 Ur Leukocyte Esterase Trace H Urine RBC 0-3 Urine WBC 6-8 H Urine WBC Clumps Few H Ur Squamous Epith Cells 0-5 Micro UA Comment Cath-culture ind Ur Microscopic Review Microscopic reviewed Urine Culture Comments Cath-cult indicated 02/03/18 07:49 CBC w Diff WBC RBC Hgb Hct MCV MCH MCHC RDW Plt Count MPV Neut % (Auto) Lymph % (Auto) [place] % (Auto) Eos % (Auto) Baso % (Auto) Neut # (Auto) Lymph # (Auto) [place] # (Auto) Eos # (Auto) Baso # (Auto) WBC Differential Diff Scan Differential Comment PT 17.4 H INR 1.7 APTT Sodium Potassium Chloride Carbon Dioxide Anion Gap BUN Creatinine Estimated GFR Random Glucose Lactic Acid Calcium Total Bilirubin Direct Bilirubin Indirect Bilirubin AST ALT Alkaline Phosphatase Total Protein Albumin Urine Color Urine Clarity Urine pH Ur Specific [place] Urine Protein Urine Glucose (UA) Urine Ketones Urine Occult Blood Urine Nitrate Urine Bilirubin Urine Urobilinogen Ur Leukocyte Esterase Urine RBC Urine WBC Urine WBC Clumps Ur Squamous Epith Cells Micro UA Comment Ur Microscopic Review Urine Culture Comments - Imaging Imaging: ITS Impressions Abdomen X-Ray 02/02/18 20:09 CONCLUSION: Mild pneumoperitoneum Chest X-Ray 02/02/18 22:35 CONCLUSION: Mild right base infiltrate Abdomen/Pelvis CT 02/03/18 00:26 CONCLUSION: 1. Fluid in the gallbladder fossa with tiny locules of air including some areas of inflammation the anterior abdominal wall suggesting recent abdominal surgery suspected cholecystectomy. The anterior abdominal wall show some induration presumably cellulitis without evidence of drainable fluid collection or abscess. There are other small areas of increased density of the abdominal wall likely related to recent injections. CT scan - abdomen: report reviewed, image reviewed CT scan - pelvis: report reviewed, image reviewed Assessment and Plan - Assessment (1) Hx laparoscopic cholecystectomy Code(s): Z90.49 - Acquired absence of other specified parts of digestive tract Status: Acute (2) Coagulopathy Code(s): D68.9 - Coagulation defect, unspecified Status: Acute (3) Leukocytosis Code(s): D72.829 - Elevated white blood cell count, unspecified Status: Acute - Plan I do not see any obvious post op issues. It could be possible that she were developing an infection intraabdominally, although not obvious on CT, and I will add flagyl to azactam and vancomycin. Regular diet. Dr. Moreno will be covering for the weekend.
[2018-02-04] MEDS: Aztreonam Inj 2 GM in Sodium Chloride 0.9% Inj 100 ML IV.SIG SCH ×3 (00:50→16:51)
[2018-02-04] MEDS ORDERED: Vancomycin Inj 750 MG in Sodium Chlor 0.9% Inj 250 ML IV.SIG SCH (04:00)
[2018-02-04] MEDS: Levothyroxine 88 MCG Tablet PO SCH (05:15)
[2018-02-04] MEDS: metroNIDAZOLE 500 MG Tablet PO SCH ×3 (05:16→20:18)
[2018-02-04] MEDS: Acetaminophen 325 MG Tablet PO PRN ×2 (06:12→20:18)
[2018-02-04] MEDS: Sod Chloride 0.9% Inj 1,000 ML IV.CONT SCH ×2 (06:15→19:26)
[2018-02-04 07:43] LABS: Baso # (Auto) 0.5 th/mm3 (0.0-0.2); Baso % (Auto) 2.6 % (0.0-2.0); Eos # (Auto) 0.2 th/mm3 (0.0-0.4); Eos % (Auto) 0.8 % (0.0-4.0); Hematocrit 26.2 % (35.0-46.0); Hemoglobin 8.7 gm/dL (11.6-15.3); Lymph # (Auto) 1.3 th/mm3 (1.0-4.8); Mean Corpuscular HGB Conc 33.3 % (32.0-36.0); Mean Corpuscular Hemoglobin 32.4 pg (27.0-34.0); Mean Corpuscular Volume 97.3 fL (80.0-100.0); Mean Platelet Volume 9.6 fL (7.0-11.0); Mono % (Auto) 5.1 % (0.0-8.0); Neut # (Auto) 16.1 th/mm3 (1.8-7.7); Neut % (Auto) 84.5 % (16.0-70.0); Platelet Count 200 th/mm3 (150-450); Red Blood Count 2.69 mil/mm3 (4.00-5.30); Red Cell Distribution Width 13.1 % (11.6-17.2); White Blood Count 19.1 th/mm3 (4.0-11.0)
--- NOTE | 2018-02-04 07:48 | P.PN ---
Subjective Interval history: Nauseated with food intake yesterday. Resumed PPI last night which she thinks has helped. Pain controlled, but still present. No fever. Ambulated with assist from family in room yesterday. Physical Exam Vital signs: Vital Signs 02/03/18 08:00 02/03/18 12:00 02/03/18 13:17 Temperature 96.9 F L 97.2 F L Pulse Rate 106 H 100 H Respiratory Rate 16 16 Blood Pressure 161/83 H 140/67 Pulse Oximetry 96 95 95 02/03/18 16:00 02/03/18 18:07 02/03/18 19:45 Temperature 99.2 F Pulse Rate 102 H Respiratory Rate 18 18 Blood Pressure 181/80 H Pulse Oximetry 95 98 02/03/18 20:00 02/04/18 00:00 02/04/18 04:00 Temperature 98 F 98.8 F 97.9 F Pulse Rate 99 H 97 H 106 H Respiratory Rate 18 18 18 Blood Pressure 191/76 H 151/81 H 190/79 H Pulse Oximetry 95 96 97 Intake & Output 02/03/18 02/04/18 02/04/18 18:59 06:59 18:59 Intake Total 2160 / 2160 1227.5 / 1227.5 Balance 2160 / 2160 1227.5 / 1227.5 Weight 66.5 kg Intake: IV 1200 / 1200 1107.5 / 1107.5 NS Inj 1,000 ML @ 75 mls/hr IV. 1000 / 1000 750 / 750 CONT .[id number] [facility] Rx#: [id number] Azactam Inj 2 GM In NS Inj 100 200 / 200 100 / 100 ML @ 200 mls/hr IV.SIG Q8H [facility] Rx#:[id number] Vancomycin Inj 750 MG In NS Inj 257.5 / 257.5 250 ML @ 250 mls/hr IV.SIG Q24H [facility] Rx#:[id number] Oral 960 / 960 120 / 120 Other: # Voids 6 2 # Bowel Movements 0 2 Narrative: GENERAL: Awake and alert. No acute distress. Cooperative. Pleasant. HEAD: Normocephalic. Atraumatic. EYES: Pupils equal round and reactive to light bilaterally. No scleral icterus. ENT: Moist oral mucosa. NECK: Trachea midline. No JVD. CHEST: Nonlabored breathing. No respiratory distress. Lungs CTA with some diminished sounds in bases. CARDIOVASCULAR: Mild tachycardia with rate in low 100s. No significant murmur. Reg rhythm. ABDOMEN: Soft, multiple areas of bruising, bandage in right abdomen, no active bleeding or d/c. Moderate right side ttp appropriate to postsurgical state. EXTREMITIES: No cyanosis or edema. MAEW. SKIN: Warm, dry, nonjaundiced. Ecchymoses on abd wall as noted and at recent lovenox injection sites. Results - Labs CBC & Chem 7: 02/03/18 07:49 02/03/18 07:49 Laboratory Results - last 24 hr 02/03/18 02/03/18 02/03/18 07:49 07:49 07:49 CBC w Diff Slide review pending WBC 22.1 H RBC 3.22 L Hgb 10.3 L Hct 31.0 L MCV 96.2 MCH 31.8 MCHC 33.1 RDW 13.2 Plt Count 233 MPV 10.3 Neut % (Auto) 89.1 H Lymph % (Auto) 4.7 L [place] % (Auto) 5.6 Eos % (Auto) 0.3 Baso % (Auto) 0.3 Neut # (Auto) 19.7 H Lymph # (Auto) 1.0 [place] # (Auto) 1.2 H Eos # (Auto) 0.1 Baso # (Auto) 0.1 WBC Differential . Diff Scan Auto diff confirmed Differential Comment . PT 17.4 H INR 1.7 Sodium 130 L Potassium 3.9 Chloride 95 L Carbon Dioxide 27.1 Anion Gap 8 BUN 14 Creatinine 0.69 Estimated GFR 80 L Random Glucose 102 Calcium 8.0 L Total Bilirubin 0.7 AST 28 ALT 49 Alkaline Phosphatase 66 Total Protein 6.5 D Albumin 2.5 L Microbiology 02/02/18 23:05 Blood - Peripheral Aerobic Blood Culture - Preliminary No growth in 1 day 02/02/18 23:05 Blood - Peripheral Anaerobic Blood Culture - Preliminary No growth in 1 day Assessment and Plan - Assessment (1) Cellulitis of right abdominal wall Code(s): L03.311 - Cellulitis of abdominal wall Status: Acute Plan: Currently on aztreonam, flagyl, vanco. Awaiting repeat labs. no fever. If WBC improving and tolerating oral intake well, will consider switch to oral meds for trial. Cltx neg and pt doesn't appear toxic. (2) Hx laparoscopic cholecystectomy Code(s): Z90.49 - Acquired absence of other specified parts of digestive tract Status: Acute Plan: has been evaluated by surgery. No obvious intra-abd infectious process per surgery note (3) Leukocytosis Code(s): D72.829 - Elevated white blood cell count, unspecified Status: Acute Plan: As above. Likely a/w pain and infectious process. (4) SIRS (systemic inflammatory response syndrome) Code(s): R65.10 - Systemic inflammatory response syndrome (SIRS) of non- infectious origin without acute organ dysfunction Status: Acute Plan: as above. VSS. Does not appear toxic on exam. Lactic acid wnl. (5) Hyponatremia Code(s): E87.1 - Hypo-osmolality and hyponatremia Status: Chronic Plan: improving. Follow labs. (6) Hypertension Code(s): I10 - Essential (primary) hypertension Status: Chronic Plan: continue home meds. PRN clonidine added due to some BP elevations. Furosemide on hold currently. (7) Chronic atrial fibrillation Code(s): I48.2 - Chronic atrial fibrillation Status: Chronic Plan: continue anticoag. Rate fairly well controlled. (8) CHF (congestive heart failure) Code(s): I50.9 - Heart failure, unspecified Status: Chronic Plan: no overt failure on exam. Will be judicious with IVF. Furosemide held currently. (9) GERD (gastroesophageal reflux disease) Code(s): K21.9 - Gastro-esophageal reflux disease without esophagitis Status: Chronic Plan: resumed PPI (10) Hyperlipidemia Code(s): E78.5 - Hyperlipidemia, unspecified Status: Chronic Plan: continue meds - Plan Code Status: full Discussed Condition With: Pt, her nurse and her daughter at bedside (6) Hypertension Qualifiers: Hypertension type: essential hypertension Qualified Code(s): I10 - Essential (primary) hypertension
[2018-02-04 08:06] LABS: Chloride 98 meq/L (98-107); Potassium 3.5 meq/L (3.5-5.1); Sodium 129 meq/L (136-145)
[2018-02-04 08:09] LABS: Anion Gap 8 meq/L (5-15); Calcium 7.5 mg/dL (8.5-10.1); Carbon Dioxide 22.9 meq/L (21.0-32.0)
[2018-02-04 08:10] LABS: Blood Urea Nitrogen 10 mg/dL (7-18); Glucose,Random 103 mg/dL (74-106)
[2018-02-04 08:13] LABS: Glomerular Filtration Rate Greater Than 89 mL/min (>89)
[2018-02-04 08:54] LABS: Platelet Estimate Normal (Normal); Platelet Morphology Normal (Normal)
--- NOTE | 2018-02-04 16:48 | P.PNADD ---
Addendum to Inpatient Note Reason for Addendum: Additional Documentation Additional information: I spoke with pt's nurse. Pt has been doing better. Had one episode of nausea this AM, but none since. Eating relatively well about 50% of her meals. No vomiting. No fever. Pain controlled. Will try converting to oral Levaquin and doxy to see how she tolerates. If she does well with oral meds, will hopefully be able to d/c home tomorrow.
[2018-02-04] MEDS: levoFLOXacin 500 MG Tablet PO SCH (17:29)
[2018-02-05] MEDS: Levothyroxine 88 MCG Tablet PO SCH (05:04)
[2018-02-05] MEDS: metroNIDAZOLE 500 MG Tablet PO SCH ×3 (05:05→19:26)
--- NOTE | 2018-02-05 06:49 | P.PN ---
Subjective Interval history: Reports that she did not sleep as well last night. Appears a little confused this morning but wants more aroused she is alert and oriented and able to tell me her location the month and the year. She was not exactly sure of the date but knew it was toward the end of January near [place]. Reports that she has been able to eat better and the nausea has improved. Pain controlled. Physical Exam Vital signs: Vital Signs 02/04/18 07:44 02/04/18 07:59 02/04/18 08:00 Temperature 98.2 F Pulse Rate 91 H 83 Respiratory Rate 20 Blood Pressure 146/74 H Pulse Oximetry 96 96 96 02/04/18 11:32 02/04/18 12:00 02/04/18 16:00 Temperature 98.2 F 97.4 F L Pulse Rate 92 H 100 H Respiratory Rate 20 20 Blood Pressure 121/66 178/89 H Pulse Oximetry 93 L 92 L 91 L 02/04/18 18:45 02/04/18 19:50 02/04/18 20:00 Temperature 99.1 F Pulse Rate 87 Respiratory Rate 20 Blood Pressure 129/63 Pulse Oximetry 96 98 98 02/05/18 00:00 02/05/18 04:00 Temperature 97.6 F 97 F L Pulse Rate 90 76 Respiratory Rate 20 20 Blood Pressure 148/74 H 136/72 Pulse Oximetry 99 98 Intake & Output 02/04/18 02/04/18 02/05/18 06:59 18:59 06:59 Intake Total 1227.5 / 1227.5 1500 / 1500 1000 / 1000 Balance 1227.5 / 1227.5 1500 / 1500 1000 / 1000 Weight 66.5 kg 66 kg Intake: IV 1107.5 / 1107.5 200 / 200 1000 / 1000 NS Inj 1,000 ML @ 75 mls/hr IV. 750 / 750 1000 / 1000 CONT .[id number] [facility] Rx#: [id number] Azactam Inj 2 GM In NS Inj 100 100 / 100 200 / 200 ML @ 200 mls/hr IV.SIG Q8H [facility] Rx#:[id number] Vancomycin Inj 750 MG In NS Inj 257.5 / 257.5 250 ML @ 250 mls/hr IV.SIG Q24H [facility] Rx#:[id number] Oral 120 / 120 1300 / 1300 Other: # Voids 2 4 3 # Bowel Movements 2 2 Narrative: GENERAL: Awake and alert. No acute distress. Cooperative. Pleasant. Slightly confused initially as noted. HEAD: Normocephalic. Atraumatic. EYES: Pupils equal round and reactive to light bilaterally. No scleral icterus. ENT: Moist oral mucosa. NECK: Trachea midline. No JVD. CHEST: Nonlabored breathing. No respiratory distress. Lungs CTA with some diminished sounds in bases. CARDIOVASCULAR: Regular rate. No significant murmur. Reg rhythm. ABDOMEN: Soft, multiple areas of bruising, bandage in right abdomen, no active bleeding or d/c. Moderate right side ttp similar to yesterday's exam. EXTREMITIES: No cyanosis or edema. MAEW. SKIN: Warm, dry, nonjaundiced. Ecchymoses on abd wall seems a bit more pronounced today. Results - Labs CBC & Chem 7: 02/04/18 07:10 02/04/18 07:10 Laboratory Results - last 24 hr 02/04/18 02/04/18 02/04/18 07:10 07:10 07:10 CBC w Diff Slide review pending WBC 19.1 H RBC 2.69 L Hgb 8.7 L Hct 26.2 L MCV 97.3 MCH 32.4 MCHC 33.3 RDW 13.1 Plt Count 200 MPV 9.6 Neut % (Auto) 84.5 H Lymph % (Auto) 7.0 L [place] % (Auto) 5.1 Eos % (Auto) 0.8 Baso % (Auto) 2.6 H Neut # (Auto) 16.1 H Lymph # (Auto) 1.3 [place] # (Auto) 1.0 H Eos # (Auto) 0.2 Baso # (Auto) 0.5 H WBC Differential . Diff Scan Auto diff confirmed Differential Comment . Platelet Estimate Normal Platelet Morphology Normal PT 20.0 H INR 2.0 Sodium 129 L Potassium 3.5 Chloride 98 Carbon Dioxide 22.9 Anion Gap 8 BUN 10 Creatinine 0.47 L Estimated GFR Greater than 89 Random Glucose 103 Calcium 7.5 L Microbiology 02/03/18 00:03 Catheterized Urine Urine Culture - Preliminary No growth in 24 hours 02/02/18 23:10 Blood - Peripheral Aerobic Blood Culture - Preliminary No growth in 1 day 02/02/18 23:10 Blood - Peripheral Anaerobic Blood Culture - Preliminary No growth in 1 day 02/02/18 23:05 Blood - Peripheral Aerobic Blood Culture - Preliminary No growth in 2 days 02/02/18 23:05 Blood - Peripheral Anaerobic Blood Culture - Preliminary No growth in 2 days Assessment and Plan - Assessment (1) Cellulitis of right abdominal wall Code(s): L03.311 - Cellulitis of abdominal wall Status: Acute Plan: Switch to oral Doxy and Levaquin yesterday. We will continue Flagyl. Awaiting repeat labs. no fever. If she continues to improve and white blood cell count trends down, hopefully send her home later today. Cltx neg and pt doesn't appear toxic. (2) Hx laparoscopic cholecystectomy Code(s): Z90.49 - Acquired absence of other specified parts of digestive tract Status: Acute Plan: has been evaluated by surgery. No obvious intra-abd infectious process per surgery note. Discussed her clinical condition with Dr. Moreno yesterday who is covering surgery. (3) Leukocytosis Code(s): D72.829 - Elevated white blood cell count, unspecified Status: Acute Plan: As above. Likely a/w pain and infectious process. (4) SIRS (systemic inflammatory response syndrome) Code(s): R65.10 - Systemic inflammatory response syndrome (SIRS) of non- infectious origin without acute organ dysfunction Status: Acute Plan: as above. VSS. Does not appear toxic on exam. Lactic acid wnl. (5) Hyponatremia Code(s): E87.1 - Hypo-osmolality and hyponatremia Status: Chronic Plan: Stable. Follow labs. (6) Hypertension Code(s): I10 - Essential (primary) hypertension Status: Chronic Plan: continue home meds. PRN clonidine added due to some BP elevations. Furosemide on hold currently. (7) Chronic atrial fibrillation Code(s): I48.2 - Chronic atrial fibrillation Status: Chronic Plan: continue anticoag. Rate fairly well controlled. (8) CHF (congestive heart failure) Code(s): I50.9 - Heart failure, unspecified Status: Chronic Plan: no overt failure on exam. Will be judicious with IVF. Furosemide held currently , but will resume at discharge. (9) GERD (gastroesophageal reflux disease) Code(s): K21.9 - Gastro-esophageal reflux disease without esophagitis Status: Chronic Plan: resumed PPI. Has helped her nausea. (10) Hyperlipidemia Code(s): E78.5 - Hyperlipidemia, unspecified Status: Chronic Plan: continue meds - Plan Discharge Planning: Hopefully discharge home later today or tomorrow. We will contact her daughter a little later this morning. (6) Hypertension Qualifiers: Hypertension type: essential hypertension Qualified Code(s): I10 - Essential (primary) hypertension
--- NOTE | 2018-02-05 06:52 | P.DCO ---
- Diagnosis (1) Cellulitis of right abdominal wall Status: Acute (2) Leukocytosis Status: Acute (3) SIRS (systemic inflammatory response syndrome) Status: Acute - Physical Therapy Order: Evaluate and treat, Improve ambulation, Strength and gait training - Home Health Nursing Order: Medical education, Nursing assessment with vital signs - Case Management Consult Case Management Consult-Home Health: Yes - Certification I have seen patient Marah White on 02/05/18. My clinical findings support the need for the requested home health care services because: Limited mobility due to disease progression, Deconditioned with increased weakness, Limited ability to care for self, Infection with risk of complications I certify that my clinical findings support that this patient is homebound because: Post-op weakness, Unsteady gait/balance Attestation/Additional Detail: Home health to draw labs
--- NOTE | 2018-02-05 07:04 | P.DS ---
Date of admission: 02/03/18 09:41 Primary care physician: Sina Noguera MD Brief History from admission: HPI: 87-year-old white female who had a laparoscopic cholecystectomy on 01-31-18 who came to the emergency room on the evening of 02-02-18 because of persistent oozing of blood from 1 of the incision sites of her surgery. It has been oozing blood for about 24 hours and they were unable to stop the bleeding. She was on Lovenox as bridge therapy for warfarin because she has atrial fibrillation. Her warfarin was reinstituted the evening of her surgery and she had an INR done on 02-02-18 that was just slightly above 2.0 and her Lovenox was stopped. In the ER the physician had to apparently place a few sutures in the site where the incision was draining and apply some pressure to eventually get the bleeding to stop. She was mildly tender in the right upper abdomen. Blood work that was done in the ED showed an elevated white blood cell count of 23,000 and a sodium level of 127. An initial chest x-ray showed questionable infiltrate in right lung base. A CT scan of the abdomen however showed no infiltrate in the lower lung but did show induration in the right upper abdomen suggestive of possible cellulitis but no abscess was seen. She reportedly did have a low-grade fever yesterday morning. She did have one episode of vomiting on Tuesday evening (02-01-18). She denies any dysuria, frequency of urination or hematuria. She has no diarrhea. She was treated for a bronchial type infection on 01-20-[address] Noguera (PCP) and given a Z-Edwardo at that time and her cough resolved to her surgery. This morning after she woke she did cough to clear her throat and there was some slight blood tinged white mucus. A chest x-ray was not done earlier in the month when she was put on the Z-edwardo. Dr. Samuels (ER physician) talked with the patient's surgeon (Dr. Sims) last night in the emergency room and he recommended admitting the patient to the medical service and he would see her in consultation. She was given vancomycin and Azactam in the ED last evening. She denies any chest pain or wheezing. Medical history: Chronic atrial fibrillation Hypertension Hyperlipidemia Hypothyroidism Gastroesophageal reflux disease Mild to moderate aortic valve stenosis on prior 2D echo on 12-08-17. Her EF was 55%. Atherosclerosis of the aorta/tortuous aorta Osteopenia Stage II CKD History of prior CVA and TIA CHF Coronary artery disease with prior four-vessel coronary artery bypass graft. She had a myocardial perfusion scan on 12-07-17 showed mild inferolateral pattern without significant ischemia and an EF of 60%. No colon disease No liver disease No diabetes mellitus No cancer History of herpes zoster Surgical history: Tonsillectomy Bilateral cataract extraction and lens implant Bilateral upper lid surgery for ptosis Four-vessel coronary artery bypass Laparoscopic cholecystectomy on 01-31-18 Allergies: Cephalexin Bactrim (sulfa drugs) Home Medications: Warfarin 4 mg 1 tablet daily except half a tablet on Tuesday and Tuesday Omeprazole 20 mg tablet 2 tablets daily Losartan 50 mg 1 daily Atorvastatin 40 mg daily Furosemide 40 mg daily and an additional 20 mg as needed Potassium chloride 10 mEq 1 daily Vitamin D 3 2000 units daily Multivitamin 1 daily Vitamin B12 thousand micrograms daily Family history: Mother at 95 Father at 46 of heart disease Son has had coronary artery disease and coronary artery bypass Social history: She only smoked a pack a day for 10 years many years ago. She denies alcohol use. She is and lives independently alone. 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 DS: Diagnosis - Discharge Diagnosis (1) Cellulitis of right abdominal wall Status: Acute (2) Leukocytosis Status: Acute (3) SIRS (systemic inflammatory response syndrome) Status: Acute (4) Hx laparoscopic cholecystectomy Status: Acute (5) Hyponatremia Status: Chronic (6) Hypertension Status: Chronic (7) Hyperlipidemia Status: Chronic (8) Chronic atrial fibrillation Status: Chronic (9) CHF (congestive heart failure) Status: Chronic (10) GERD (gastroesophageal reflux disease) Status: Chronic DS: Medications - Discharge Medications Prescriptions: doxycycline hyclate 100 mg PO Q12HR #10 tab levofloxacin 500 mg PO Q24H #5 tab metronidazole 500 mg PO Q8H #15 tab ondansetron 4 mg PO Q6H PRN #12 tab PRN Reason: Nausea DS: Summary Hospital Course: Patient admitted to the medicine service with. She did not appear to have any surgically related intra-abdominal process according to surgery eval. She was given IV antibiotics, antiemetics and IV fluids. She had no fever. She was noted to have a significant white count in the low 20,000. This gradually improved. Her condition remained stable. She was able to tolerate oral intake well. IV antibiotics were converted to oral formulation. Cultures remained negative. She will continue oral antibiotics for 5 more days. Home health will be arranged to follow her INR closely as the antibiotics will likely increase the effective half-life of her warfarin thereby increasing her INR. - Time Spent with Patient Total time spent providing and/or coordinating discharge services: Less than 30 minutes - Quality: VTE Deep Vein Thrombosis/Pulmonary Embolism Present on Admission: No Exam Vital signs: Vital Signs 02/04/18 07:44 02/04/18 07:59 02/04/18 08:00 Temperature 98.2 F Pulse Rate 91 H 83 Respiratory Rate 20 Blood Pressure 146/74 H Pulse Oximetry 96 96 96 02/04/18 11:32 02/04/18 12:00 02/04/18 16:00 Temperature 98.2 F 97.4 F L Pulse Rate 92 H 100 H Respiratory Rate 20 20 Blood Pressure 121/66 178/89 H Pulse Oximetry 93 L 92 L 91 L 02/04/18 18:45 02/04/18 19:50 02/04/18 20:00 Temperature 99.1 F Pulse Rate 87 Respiratory Rate 20 Blood Pressure 129/63 Pulse Oximetry 96 98 98 02/05/18 00:00 02/05/18 04:00 Temperature 97.6 F 97 F L Pulse Rate 90 76 Respiratory Rate 20 20 Blood Pressure 148/74 H 136/72 Pulse Oximetry 99 98 Intake & Output 02/04/18 02/05/18 02/05/18 18:59 06:59 18:59 Intake Total 1500 / 1500 1000 / 1000 Balance 1500 / 1500 1000 / 1000 Weight 66 kg Intake: IV 200 / 200 1000 / 1000 NS Inj 1,000 ML @ 75 mls/hr IV. 1000 / 1000 CONT .[id number] SAMEERA Rx#: [id number] Azactam Inj 2 GM In NS Inj 100 200 / 200 ML @ 200 mls/hr IV.SIG Q8H SAMEERA Rx#:[id number] Oral 1300 / 1300 Other: # Voids 4 3 # Bowel Movements 2 Narrative: GENERAL: Awake and alert. No acute distress. Cooperative. Pleasant. Slightly confused initially as noted. HEAD: Normocephalic. Atraumatic. EYES: Pupils equal round and reactive to light bilaterally. No scleral icterus. ENT: Moist oral mucosa. NECK: Trachea midline. No JVD. CHEST: Nonlabored breathing. No respiratory distress. Lungs CTA with some diminished sounds in bases. CARDIOVASCULAR: Regular rate. No significant murmur. Reg rhythm. ABDOMEN: Soft, multiple areas of bruising, bandage in right abdomen, no active bleeding or d/c. Moderate right side ttp similar to yesterday's exam. EXTREMITIES: No cyanosis or edema. MAEW. SKIN: Warm, dry, nonjaundiced. Ecchymoses on abd wall seems a bit more pronounced today. Results Procedures completed during hospitalization: none Labs on day of discharge: Labs from last 24 hours 02/04/18 02/04/18 02/04/18 07:10 07:10 07:10 CBC w Diff Slide review pending WBC 19.1 H RBC 2.69 L Hgb 8.7 L Hct 26.2 L MCV 97.3 MCH 32.4 MCHC 33.3 RDW 13.1 Plt Count 200 MPV 9.6 Neut % (Auto) 84.5 H Lymph % (Auto) 7.0 L Ballard % (Auto) 5.1 Eos % (Auto) 0.8 Baso % (Auto) 2.6 H Neut # (Auto) 16.1 H Lymph # (Auto) 1.3 Ballard # (Auto) 1.0 H Eos # (Auto) 0.2 Baso # (Auto) 0.5 H WBC Differential . Diff Scan Auto diff confirmed Differential Comment . Platelet Estimate Normal Platelet Morphology Normal PT 20.0 H INR 2.0 Sodium 129 L Potassium 3.5 Chloride 98 Carbon Dioxide 22.9 Anion Gap 8 BUN 10 Creatinine 0.47 L Estimated GFR Greater than 89 Random Glucose 103 Calcium 7.5 L Preliminary micro results at discharge 02/03/18 00:03 Urine Culture - Preliminary Catheterized Urine No growth in 24 hours 02/02/18 23:10 Aerobic Blood Culture - Preliminary Blood - Peripheral No growth in 1 day Anaerobic Blood Culture - Preliminary No growth in 1 day 02/02/18 23:05 Aerobic Blood Culture - Preliminary Blood - Peripheral No growth in 2 days Anaerobic Blood Culture - Preliminary No growth in 2 days - Impressions ITS Impressions Abdomen X-Ray 02/02/18 20:09 CONCLUSION: Mild pneumoperitoneum Chest X-Ray 02/02/18 22:35 CONCLUSION: Mild right base infiltrate Abdomen/Pelvis CT 02/03/18 00:26 CONCLUSION: 1. Fluid in the gallbladder fossa with tiny locules of air including some areas of inflammation the anterior abdominal wall suggesting recent abdominal surgery suspected cholecystectomy. The anterior abdominal wall show some induration presumably cellulitis without evidence of drainable fluid collection or abscess. There are other small areas of increased density of the abdominal wall likely related to recent injections. - Additional Comments Discharge meds: Warfarin 4 mg 1 tablet daily except half a tablet on Tuesday and Tuesday Omeprazole 20 mg tablet 2 tablets daily Losartan 50 mg 1 daily Atorvastatin 40 mg daily Furosemide 40 mg daily and an additional 20 mg as needed Potassium chloride 10 mEq 1 daily Vitamin D 3 2000 units daily Multivitamin 1 daily Vitamin B12 thousand micrograms daily Doxycycline 100mg bid for 5 days Flagyl 500mg tid for 5 days Levaquin 500mg/d for 5 days Zofran 4mg q 6h prn n/v Discharge Plan - Discharge Disposition Patient Disposition: /Home Health Service - Discharge Condition Condition: Stable - Discharge Order Discharge Orders: Discharge Order (Routine); Ordered 02/05/18 Ordered By: Refugio Davis - Discharge Details Anticipated Discharge Date: 02/05/18 - Physicians Team Primary Care Provider: Sina Noguera Attending Provider: Miguelangel Childs Other Providers: Abdirizak Sims MD
[2018-02-05 07:47] LABS: Baso # (Auto) 0.1 th/mm3 (0.0-0.2); Baso % (Auto) 0.9 % (0.0-2.0); Eos # (Auto) 0.1 th/mm3 (0.0-0.4); Eos % (Auto) 0.9 % (0.0-4.0); Hematocrit 27.7 % (35.0-46.0); Hemoglobin 9.1 gm/dL (11.6-15.3); Lymph # (Auto) 1.2 th/mm3 (1.0-4.8); Mean Corpuscular Volume 97.1 fL (80.0-100.0); Mean Platelet Volume 9.6 fL (7.0-11.0); Mono # (Auto) 1.1 th/mm3 (0.0-0.9); Mono % (Auto) 6.7 % (0.0-8.0); Neut # (Auto) 14.1 th/mm3 (1.8-7.7); Neut % (Auto) 84.5 % (16.0-70.0); Platelet Count 229 th/mm3 (150-450); Red Blood Count 2.85 mil/mm3 (4.00-5.30); Red Cell Distribution Width 13.1 % (11.6-17.2); White Blood Count 16.6 th/mm3 (4.0-11.0)
[2018-02-05 07:53] LABS: Chloride 102 meq/L (98-107); Potassium 3.5 meq/L (3.5-5.1); Sodium 135 meq/L (136-145)
[2018-02-05 07:56] LABS: INR 2.5 Ratio; Prothrombin Time 24.8 sec (9.8-11.6)
[2018-02-05 07:57] LABS: Albumin 2.1 g/dL (3.4-5.0); Anion Gap 8 meq/L (5-15); Blood Urea Nitrogen 9 mg/dL (7-18); Glucose,Random 93 mg/dL (74-106)
[2018-02-05 08:00] LABS: Alanine Aminotransferase 28 U/L (10-53); Aspartate Aminotransferase 16 U/L (15-37); Glomerular Filtration Rate Greater Than 89 mL/min (>89)
[2018-02-05 08:02] LABS: Total Protein 5.8 g/dL (6.4-8.2)
[2018-02-05 08:03] LABS: Alkaline Phosphatase 64 U/L (45-117)
[2018-02-05 09:18] LABS: Platelet Estimate Normal (Normal); Platelet Morphology Normal (Normal); Toxic Granulation 1+
[2018-02-05] MEDS: Sod Chloride 0.9% Inj 1,000 ML IV.CONT SCH (09:34)
[2018-02-05] MEDS: Acetaminophen 325 MG Tablet PO PRN ×2 (11:29→21:23)
[2018-02-05] MEDS: levoFLOXacin 500 MG Tablet PO SCH (16:56)
== END 2018-02-05 22:12 | disposition home health service (06) ==
LOC: PHEDA 18:56 → PHED 18:56 → PH3 02-03 03:41
PROVIDERS: ADMIT Family Medicine; ATTEND Family Medicine